=== PATIENT | female | born 1990 | race Two or more races ===

== ENCOUNTER 2022-07-11 15:06 | Day surgery (SDC) | payer OTHER | END 2022-07-11 23:00 | disposition home or self-care (01) | LOC: CIR.AMB 15:06 | PROVIDERS: ATTEND Obstetrics & Gynecology Maternal & Fetal Medicine | DX: O02.1 Missed abortion (principal); O72.2 Delayed and secondary postpartum hemorrhage; Z20.822 Contact with and (suspected) exposure to COVID-19 ==